=== PATIENT | female | born 1980 | race Two or more races ===

== ENCOUNTER 2018-10-12 10:13 | Emergency (ER) | payer OTHER ==
[~2018-10-12] VITALS: Ht 157.5 cm; Wt 67.4 kg
[2018-10-12 10:17] VITALS: BP 136/87
--- NOTE | 2018-10-12 10:26 | NUR ---
THIS IS A 38 YEAR OLD FEMALE WHO C/O OF NECK AND HEAD PAIN STARTED TODAY. "I AM AFRAID IT MIGHT BE MY SPINE". DENIES ANY TRAUMA
[2018-10-12] MEDS ORDERED: KETOROLAC 60 MG/2 ML ONE (10:41)
[2018-10-12] MEDS ORDERED: CARISOPRODOL 350 MG TABLET ONE (10:47)
[2018-10-12] MEDS ORDERED: CARISOPRODOL 350 MG TABLET PO SCH (11:00)
[2018-10-12] MEDS ORDERED: KETOROLAC 30 MG/1 ML IM ONE (11:00)
--- NOTE | 2018-10-12 11:05 | NUR ---
MEDICATED PER ORDERS, WARM BLANKET GIVEN. LIGHTS OFF
== END 2018-10-12 11:26 | disposition home or self-care (01) ==
LOC: ED 11:20
DX: G44.209 Tension-type headache, unspecified, not intractable (principal); M54.2 Cervicalgia
CPT/HCPCS: 96372; 99283; J1885